=== PATIENT | male | born 1950 | race Caucasian/White ===

== ENCOUNTER 2016-05-27 08:55 | Inpatient (IN) ==
[2016-05-27] MEDS ORDERED: CeFAZolin Pre 2,000 MG/100 ML 2,000 MG/100 ML BAG IVPB ONE (09:33)
[2016-05-27] MEDS ORDERED: Lidocaine 1% 20 ML MDV ID ONE (09:33)
[2016-05-27] MEDS ORDERED: Albuterol 2.5 MG/3 ML NEBULIZER IH ONE (09:33)
[2016-05-27] MEDS ORDERED: Ringers Solution, Lactated 1,000 ML IVC SCH ×2 (09:45→13:55)
[2016-05-27] MEDS ORDERED: *HR* Labetalol 100 MG/20 ML MDV IVP PRN (10:15)
[2016-05-27] MEDS ORDERED: Metoclopramide 10 MG/2 ML VIAL IVP ONE (10:15)
[2016-05-27] MEDS ORDERED: *HR* Promethazine 25 MG/ML VIAL IVP PRN (10:15)
[2016-05-27] MEDS ORDERED: cloNIDine HCl 0.1 MG TABLET PO ONE (10:15)
[2016-05-27] MEDS ORDERED: Famotidine 20 MG/2 ML VIAL IVP ONE (10:15)
[2016-05-27] MEDS ORDERED: *HR* HYDROmorphone (PF) 1 MG/ML SYRINGE IVP PRN (10:15)
[2016-05-27] MEDS ORDERED: Gabapentin 300 MG CAPSULE PO STA (10:18)
--- NOTE | 2016-05-27 10:24 | Anesthesia Evaluation PreOp ---
Date of Encounter: 05/27/16 Time of Encounter: 10:21 - Past History Planned Operation: Removal of Hardware Cervical Spine Cardiac History: HTN (maintained on Norvasc, Enalapril), Hyperlipidemia ( maintained on Pravachol) Pulmonary History: Smoker (Pipe Smoker) INSTRUMENT MECHANIC History: Other (L-leg/foot "heaviness". Anxiety/Depression maintained on Citalopram) Other Medical History: Diabetes Type II (maintained on Metformin, Amaryl), GERD (maitnained on Omeprazole), Other (Dysphagia re: cervical hardware/screw "backing out" affecting esophagus) Anesthesia History: No Prior Anesthetic Complications, Past Anesthesia (Neck surgery [id number], Colonoscopy, hernia x 2, Appy,) Alcohol Use: unknown Drug use: unknown Medications and Allergies Amlodipine [Norvasc] 5 mg PO DAILY 05/27/16 [History] Citalopram [CeleXA] 20 mg PO DAILY 05/27/16 [History] Enalapril Maleate [Vasotec] 10 mg PO DAILY 05/27/16 [History] Glimepiride [Amaryl] 4 mg PO DAILY 05/27/16 [History] Metformin HCl [Glucophage] 1,000 mg PO BID 05/27/16 [History] Omeprazole [PriLOSEC] 20 mg PO DAILY 05/27/16 [History] Pravastatin Sodium [Pravachol] 20 mg PO DAILY 05/27/16 [History] Allergies ibuprofen [From Advil] Allergy (Verified 05/27/16 10:18) Hives - Meds/Allergy Pre-op Review Medications Reviewed: Yes Allergies Reviewed: Yes Beta Blockers on Current Med List: No Anesthesia Results - Labs Laboratory Tests 05/23/16 05/23/16 05/23/16 13:34 13:34 13:34 WBC 8.9 Hgb 13.6 Hct 39.4 Plt Count 160 PT 10.3 INR 1.0 APTT 30.7 Sodium 138 Potassium 3.9 Chloride 106 Carbon Dioxide 23 BUN 12 Creatinine 1.31 H Est GFR (Non-Af Amer) 54 L Glucose 149 H Hemoglobin A1c 05/23/16 13:34 WBC Hgb Hct Plt Count PT INR APTT Sodium Potassium Chloride Carbon Dioxide BUN Creatinine Est GFR (Non-Af Amer) Glucose Hemoglobin A1c 8.9 H - Imaging EKG: image reviewed Anesthesia Exam O2 Sat Height 1.78 m Height 1.78 m Height 1.78 m Weight 74.843 kg Weight 74.843 kg Weight 74.843 kg O2 Sat by Pulse Oximetry 96 O2 Sat by Pulse Oximetry 96 Vital Signs Temp Pulse Resp BP Pulse Ox 98.3 F 79 16 188/107 96 05/27/16 09:21 05/27/16 09:21 05/27/16 09:21 05/27/16 09:21 05/27/16 09:21 Height: 5'10" Weight: 165# BMI = 24 NPO (# of Hours): MNOc - HEENT Pupil (Motor): Pupils equal, EOMI Mallampati: III (Glidescope & Inline stabilization suggested RE: Decreased C- spine ROM) Teeth: Edentulous Oral Opening: Greater than 3 - INSTRUMENT MECHANIC LOC: Oriented INSTRUMENT MECHANIC Motor: Normal RUE, Normal LUE, Normal RLE, Normal LLE, Normal Face INSTRUMENT MECHANIC Sensory: Normal: RUE, LUE, RLE, LLE, Face - Cardiac Rhythm: Regular Murmur: None - Pulmonary Breath Sounds: bilateral Clear Respiratory Effort: Symmetrical Anesthesia Assess/Plan ASA Score: 3 (HTN, DM,) Modified Kelly Scale for Level of Consciousness: Cooperative, oriented, and tranquil Anesthetic Plan: General Monitoring Plan: Standard Monitors Recovery Plan: PACU Anes Supervising Prov Stmt: Pt seen/evaluated, R&B discussed, questions answered and consent obtained. Diane Culver MD
--- NOTE | 2016-05-27 10:43 | History & Physical Report ---
Date of Encounter: 05/27/16 Time of Encounter: 10:43 24 Hour HP Update - Instructions Instructions: If the History and Physical is less than 30 days old and was completed prior to A.M. admission and or procedure and has NOT been updated on calendar day of procedure please complete this update prior to performing procedure. - Update Patient reports changes in Medical Condition: No Changes in assessment/condition: No Changes in Medication: No Preop tests/diagnostics Reviewed: Yes Pre-Op MRSA Screen: Negative Surgery Remains Indicated: Yes Consent for Planned Operative Procedure(s) Verified: Yes - Pre-Operative Checklist Preoperative Checklist Indicated: No Prophylactic Antibiotic Ordered: Yes Home Medications Include Beta Aleah: No Beta Aleah Taken Today (Day of Surgery): No Beta Aleah Taken Yesterday (Day Prior to Surgery): No Is VTE Prophylaxis Indicated?: Yes
[2016-05-27] MEDS ORDERED: Acetaminophen IV 1,000 MG/100 ML INFUS..BTL IVPB ONE (10:57)
[2016-05-27] MEDS ORDERED: Acetaminophen IV 1,000 MG/100 ML INFUS..BTL ONE (11:09)
--- NOTE | 2016-05-27 12:26 | Orthopedic Operative Note ---
Date of procedure: 05/27/16 Pre-op diagnosis: Failed hardware, status post cervical fusion, dysphagia Post-op diagnosis: same Operation/Findings: Exploration of fusion, removal of hardware cervical spine:The patient was brought to the operating room and placed supine on the operating room table. Successful general endotracheal anesthesia intubation was performed. Compression boots and stocking were placed for deep vein thrombosis prophylaxis. Padding was also placed all bony prominences including the ulnar nerve near the medial epicondyles of the elbows were appropriately padded. Mild traction was placed on the bilateral shoulders and taped into place. Preoperative antibiotics were administered. The area from the mandible bilaterally to the upper thoraces was prepped and draped in the usual sterile fashion. A transverse incision was made at the level of the cricoid cartilage which is approximately 3 cm in length and extended from the midline of the cervical spine laterally towards the sternocleidomastoid muscle on the left. We then performed standard medial approach to the carotid sheath. Sponges were used to tease the fascial medial to the sternocleidomastoid muscle while carefully controlling and palpating the carotid artery. Using careful dissection we were able to get to the level of the anterior vertebral bodies and longus coli muscles. We explored the fusion mass and cervical plate from C4 -C7. Palpation and inspection of the fusion mass revealed no areas of pseudoarthrosis. We used standard instruments to remove a nearly fully retracted screw which had migrated anteriorly from the plate. It was noted to be pushing against and indenting the esophagus. At this point a lateral fluorograph of the cervical spine was obtained and showed satisfactory position of the graft and plate and removal of the migrated screw.. The wound was copiously irrigated and bleeders encountered were cauterized using Bovie cautery. Platysma was closed with interrupted 2-0 Vicryl sutures. Running 3-0 Monocryl suture was used for skin closure. Sterile dressing was placed over the neck wound. The patient was transferred to a hospital bed and extubated. The patient was noted to be fully motor and sensory intact in the recovery room at the end of the procedure. The medications. All sponge instrument and needle counts were correct at the end of the procedure. Anesthesia: GETA Surgeon: Edgardo Gastelum Jr Estimated blood loss (cc): 5 Specimen: cervical screw Condition: stable Disposition: PACU
[2016-05-27] MEDS ORDERED: Lidocaine -MPF 2% 2 ML VIAL ONE (12:31)
[2016-05-27] MEDS ORDERED: *HR* Propofol 200 MG/20 ML VIAL IVP ONE (12:31)
[2016-05-27] MEDS ORDERED: *HR* FentaNYL (PF) 100 MCG/2 ML VIAL ONE (12:31)
[2016-05-27] MEDS ORDERED: Ondansetron 4 MG/2 ML VIAL ONE (12:31)
[2016-05-27] MEDS ORDERED: *HR* Remifentanil 1 MG VIAL IVP ONE (12:31)
[2016-05-27] MEDS ORDERED: Dexamethasone 4 MG/ML VIAL ONE (12:31)
[2016-05-27] MEDS ORDERED: Lidocaine -MPF 4% 5 ML AMPUL ONE (12:31)
[2016-05-27] MEDS ORDERED: EPHEDrine 50 MG/ML VIAL ONE (12:31)
[2016-05-27] MEDS ORDERED: *HR* Midazolam HCl 2 MG/2 ML VIAL ONE (12:31)
[2016-05-27] MEDS ORDERED: *HR* OxyCODONE Immed Rel 5 MG TABLET PO PRN (13:55)
[2016-05-27] MEDS ORDERED: Naloxone 0.4 MG/ML INJ IVP PRN (13:55)
[2016-05-27] MEDS ORDERED: Ondansetron 4 MG/2 ML VIAL IVP PRN (13:55)
[2016-05-27] MEDS ORDERED: *HR* Morphine 2 MG/ML SYRINGE IVP PRN ×2 (13:55)
[2016-05-27] MEDS ORDERED: Sennosides 8.6 MG TABLET PO PRN (13:55)
[2016-05-27] MEDS: ceFAZolin 2,000 MG in D5% in Water 100 ML IVPB SCH ×2 (15:49→23:27)
--- NOTE | 2016-05-27 16:30 | Electrocardiograph Report ---
[address] [address] Test Date: 2016-05-27 Pat Name: Markus Watson Department: 101 Room: [facility] Gender: M [employer]: : 1950 Requested By: Edgardo Gastelum Order Number: [id number] Reading MD: Jameson Morton MD Measurements Intervals [place] Rate: 73 P: 43 AR: 166 QRS: -8 QRSD: 97 T: 65 QT: 371 QTc: 396 Interpretive Statements SINUS RHYTHM MODERATE VOLTAGE CRITERIA FOR LVH, CONSIDER NORMAL VARIANT Electronically Signed On 05-27-2016 16:28:34 EDT by Jameson Morton MD
[2016-05-27] MEDS: *HR* Metformin 500 MG TABLET PO SCH (16:56)
--- NOTE | 2016-05-27 18:58 | Anesthesia Evaluation Post Op ---
Date of Encounter: 05/27/16 Time of Encounter: 13:15 - Vital Signs Vital Signs: Vital Signs Temp Pulse Resp BP Pulse Ox 05/27/16 13:59 97.9 F 74 16 143/84 95 05/27/16 13:31 98.3 F 76 14 146/89 95 05/27/16 13:21 98.3 F 77 14 135/89 97 05/27/16 13:11 98.3 F 97 16 139/93 97 05/27/16 13:01 83 14 139/89 99 05/27/16 12:51 86 14 133/43 99 05/27/16 12:41 97.8 F 94 12 122/83 96 05/27/16 09:34 16 96 05/27/16 09:21 98.3 F 79 16 188/107 96 Intake and Output Patient Weight - Lungs Lungs: Clear Ascult./Percussion - Airway Airway: Non-obstructed - Cardiovascular Regular Rate - Mental Status Mental Status: Alert & Oriented, Answers Appropriately - Pain Pain Scale: 0 Pain Scale used: Numeric (1 - 10) - Nausea Vomiting Nausea Vomiting: Not Present - Hydration Hydration: NPO, Has not voided - Discharge PostOp Status: Transfer Patient to floor Anes Supervising Prov Stmt: Pt seen/evaluated, VSS and pt has met criteria for discharge to floor. - MD Palomo
[2016-05-28] MEDS ORDERED: *HR* Glimepiride 4 MG TABLET PO SCH (09:00)
[2016-05-28] MEDS ORDERED: amLODIPine 5 MG TABLET PO SCH (09:00)
[2016-05-28] MEDS: *HR* Metformin 500 MG TABLET PO SCH (09:16)
[2016-05-28 11:19] VITALS: BP 177/94
--- NOTE | 2016-05-28 14:03 | Discharge Summary ---
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 - Discharge Medications Prescriptions: OxyCODONE Immed Rel [Roxicodone 5 MG] 5 mg PO Q6HR PRN #60 tablet PRN Reason: Severe Pain Home Medications: Amlodipine [Norvasc] 5 mg PO DAILY 05/27/16 [History] Citalopram [CeleXA] 20 mg PO DAILY 05/27/16 [History] Enalapril Maleate [Vasotec] 10 mg PO DAILY 05/27/16 [History] Glimepiride [Amaryl] 4 mg PO DAILY 05/27/16 [History] Metformin HCl [Glucophage] 1,000 mg PO BID 05/27/16 [History] Omeprazole [PriLOSEC] 20 mg PO DAILY 05/27/16 [History] Pravastatin Sodium [Pravachol] 20 mg PO DAILY 05/27/16 [History] OxyCODONE Immed Rel [Roxicodone 5 MG] 5 mg PO Q6HR PRN #60 tablet 05/28/16 [Rx] Allergies/Adverse Reactions: Allergies ibuprofen [From Advil] Allergy (Verified 05/27/16 10:18) Hives Labs on day of discharge: Labs from last 24 hours 05/28/16 05/28/16 05/27/16 11:19 07:12 09:18 POC Glucose 216 H 223 H 139 H - Impressions ITS Impressions Cervical Spine X-Ray 05/27/16 00:00 IMPRESSION: 1. C1 through 7 visualized with incomplete visualization of the C7 hardware. Redemonstration of C4 screw shank fracture. 2. 1-2 mm anterolisthesis of C2 with respect to 3 seen on the prior radiographs reduces on the cross fire lateral recumbent view suggesting mild instability. D/ / 05/27/2016 15:45:20 Boogie Marion MD / Dolores Weeks Interpreting Provider: Boogie Marion MD Date of admission: 05/27/16 Primary care physician: Joanne Henning MD Consults: 05/27/16 13:55 Consult to Occupational Therapy [CONS] Routine Comment: Evaluate, develop and implement POC Consult to Physical Therapy [CONS] Routine Comment: Evaluate, develop and implement POC Consult to Spine Navigator [CONS] [CONS] Routine - Patient Status Disposition: Home, Self-Care Condition: Good Functional capacity at discharge: independent ambulation Overall status at discharge: patient is progressing back to baseline - Discharge Instructions Follow Up With: Joanne Henning MD [Primary Care Provider] - - Diet and Activity Activity: as per physical therapy Diet: advance to your usual diet - Hospital Course Hospital course: Mr. Watson is a 66 year old male The patient had an uneventful postoperative course. Progressed from intravenous analgesic needs to oral analgesic needs only. Remained neurovascularly intact and mobilized satisfactorily. All intraoperative and/or postoperative radiographic studies were satisfactory. Patient is discharged with plan for rehabilitation and follow-up in 2 weeks post discharge on analgesic medication and patient's home medications. - Time Spent with Patient Total time spent providing and/or coordinating discharge services: - VTE Documentation of Mechanical Device: Intermittent pneumatic compression device
== END 2016-05-28 15:32 | disposition home or self-care (01) | DRG 561 ==
LOC: SAMDAY 08:55 → 3NENU 13:44
PROVIDERS: ADMIT Orthopaedic Surgery Orthopaedic Surgery of the Spine; ATTEND Orthopaedic Surgery Orthopaedic Surgery of the Spine